=== PATIENT | male | born 1995 | race Asian ===

== ENCOUNTER 2017-03-09 10:08 | Emergency (ER) | payer OTHER ==
[~2017-03-09] VITALS: Ht 185.4 cm; Wt 88.5 kg
[2017-03-09 10:15] VITALS: BP 130/63
[2017-03-09] MEDS: NAPROXEN 500 MG TABLET PO ONE (11:14)
[2017-03-09] MEDS: oxyCODONE/APAP 7.5/325 1 TAB TABLET PO ONE (11:15)
--- NOTE | 2017-03-09 11:21 | RAD ---
Right ankle, 3 views, 03/09/2017: History: Injury, pain No fracture or dislocation is identified. Two small sclerotic foci in the distal tibia are probably bone islands. IMPRESSION: No acute bony abnormality is detected. Right foot, 3 views, 03/09/2017: No fracture or dislocation is identified. There is mild subcutaneous edema.
[2017-03-09] MEDS ORDERED: NAPR500T PO (11:37)
[2017-03-09] MEDS ORDERED: CYCL10TA2 PO (11:37)
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
== END 2017-03-09 12:02 | disposition home or self-care (01) ==
LOC: ER 10:08
DX: M79.671 Pain in right foot (principal); S90.811A Abrasion, right foot, initial encounter; W23.0XXA Caught, crushed, jammed, or pinched between moving objects, initial encounter; Y93.89 Activity, other specified; Y99.8 Other external cause status; Y92.89 Other specified places as the place of occurrence of the external cause
CPT/HCPCS: 73610; 73630; 99284